=== PATIENT | female | born 1995 | race Caucasian/White ===

== ENCOUNTER 2017-11-19 16:30 | Emergency (ER) | payer OTHER ==
[~2017-11-19] VITALS: Ht 157.5 cm; Wt 64.6 kg
[2017-11-19 16:34] VITALS: TEMP 37.6; Ht 157.5 cm; Wt 64.6 kg
[2017-11-19] MEDS ORDERED: KETOROLAC TROMETHAMINE 60 MG/2 ML VIAL IM STA (16:55)
[2017-11-19] MEDS ORDERED: DEXAMETHASONE **PF** INJ 10 MG/ML VIAL PO STA (16:55)
[2017-11-19] MEDS ORDERED: COUGH DROP (SUGAR FREE) LOZ 24 LOZ/1 BOX PO STA (16:55)
[2017-11-19] MEDS ORDERED: ACETAMINOPHEN 500 MG TAB PO STA (16:55)
[2017-11-19] MEDS ORDERED: DEXT30SU8 PO (17:06)
[2017-11-19] MEDS ORDERED: ACET-1256 PO (17:06)
--- NOTE | 2017-11-19 17:14 | EMERGENCY ROOM VISIT NOTE ---
History First contact with patient: 16:37 Chief Complaint: FLU LIKE SX Stated Complaint: FEVER, COLD, CONGESTION History of Present Illness The patient is a 21 year old healthy female who presents to the Emergency Room with complaints of fever, dry cough and congestion x 1 week. Associated with chills, rhinorrhea, otalgia, sore throat, nausea/vomiting, diarrhea (started today x 2). Denies abdominal pain and dysuria. LMP last week. Reports not sexually active and not . Did not get the flu shot this year. Lives with aunt whose and children have been sick as well. Taken Tylenol and Robitussin without much relief. Note: pt is thai speaking and aunt translated. Review of Systems see below Constitutional: + fever, + chills ENT: + nasal symptoms, + sore throat, + problem reported (otalgia) Respiratory: + cough, No sputum, No shortness of breath Cardiovascular: No chest pain Abdomen: + nausea, + vomiting, + diarrhea, No pain Genitourinary - Female: No dysuria Past Medical/Surgical History Medical Problems: (1) No Known Active Medical Problems Social History Smoking Status: Never Smoker Current/Historical Medications Scheduled Dextromethorphan Polistirex (Robitussin 12 Hour Cough), 5 ML PO PRN Prednisone (Prednisone Tab), 2 TAB PO QAM Scheduled PRN Acetaminophen (Tylenol), 1,000 MG PO Q6 PRN for Pain or Fever Physical Exam Vital Signs Date Time Temp Pulse Resp B/P (MAP) Pulse Ox O2 Delivery O2 Flow Rate FiO2 11/19/17 16:34 37.6 114 16 125/80 98 Room Air Physical Exam see below General Appearance: no apparent distress Head: normocephalic, atraumatic Eyes: normal inspection, PERRL ENT: TMs normal, pharynx normal, + nasal congestion Neck: supple, no adenopathy Respiratory/Chest: lungs clear, normal breath sounds, no respiratory distress Cardiovascular: no murmur, + tachycardia Abdomen / GI: normal bowel sounds, non tender, soft Extremities: + slow capillary refill Neurologic/Psych: alert, oriented x 3 Medical Decision & Procedures Laboratory Results Test 11/19/17 17:10 Influenza Type A Antigen POS for Influ A (NEG) Influenza Type B Antigen Neg for Influ B (NEG) Medications Administered Medications (Trade) Dose Ordered Sig/Haile Route Start Time Stop Time Status Last Admin Dose Admin Acetaminophen (Tylenol Tab) 1,000 mg NOW STAT PO 11/19/17 16:55 11/19/17 16:58 DC 11/19/17 17:14 1,000 MG Ketorolac Tromethamine (Toradol Inj) 60 mg NOW STAT IM 11/19/17 16:55 11/19/17 16:58 DC 11/19/17 17:14 60 MG Menthol (Nice Marci) 1 marci NOW STAT PO 11/19/17 16:55 11/19/17 16:58 DC 11/19/17 17:14 1 MARCI Dexamethasone Sodium Phosphate (Dexamethasone Inj Pf) 10 mg ONE STAT PO 11/19/17 16:55 11/19/17 16:58 DC 11/19/17 17:14 10 MG Medical Decision 21y/o healthy female presents with fever, dry cough and congestion x 1 week. Concerning for most likely viral URI vs. strep pharyngitis vs. sinusitis vs. bronchitis vs. pneumonia. -Centor criteria score 0 - rapid strep not done (no fever, cough present and no posterior pharyngeal erythema/exudate and LAD) -Ordered flu swab - positive for influenza A -Lives with aunt, her and 2 children: last week aunt's who had renal transplant 11/04/17 was diagnosed with influenza as well as his daughter and both were treated with antibiotics for 5 days. Pt likely got exposed to influenza from aunt's or daughter. No family memeber prophylaxis needed since already exposed and/or treated -Ordered CXR to rule out pneumonia - no acute pathology -Ordered EKG given tachycardia - sinus tachycardia -Given Toradol IM 60mg, tylenol 1g PO, Cepacol lozenge, and Dexamethasone PO 10mg for symptomatic relief - reported feeling better @1743 -Stable for discharge home -Prescribed Prednisone 40mg QAM x 4 days -Recommended Cepacol cough drops, and tylenol for discomfort; adequate hydration , and abstinence from tobacco/alcohol products. Impression Primary Impression: Upper respiratory infection Departure Information Dispostion Home / Self-Care Condition GOOD Prescriptions Prednisone (Prednisone Tab) 20 Mg Tab 2 TAB PO QAM for 4 Days, #8 TAB Prov: Shanel Arce M.D. 11/19/17 Referrals Yuridia Francis D.O. (PCP) Patient Instructions My [facility]
--- NOTE | 2017-11-19 17:35 | DIAGNOSTIC IMAGING REPORT ---
SINGLE VIEW CHEST CLINICAL HISTORY: Cough. FINDINGS: An AP, portable, upright chest radiograph is obtained. No prior studies are available for comparison at the time of dictation. The cardiomediastinal silhouette is unremarkable. The lungs and pleural spaces are clear. No pneumothorax is seen. The bony thorax is grossly intact. IMPRESSION: No active disease in the chest. Electronically signed by: Oumar Alicea M.D. 11/19/2017 5:34 PM Dictated Date/Time: 11/19/2017 5:33 PM
[2017-11-19] MEDS ORDERED: PRED20TA2 PO (17:47)
[2017-11-19 18:17] LABS: INFLUENZA B ANTIGEN Neg for Influ B (NEG)
[2017-11-19 18:41] VITALS: BP 111/66; PULSE 102; O2SAT 98
--- NOTE | 2017-12-11 01:40 | EMERGENCY ROOM VISIT NOTE ---
History Report prepared by Marilin: Leandro Travis Under the Supervision of: Dr. Ayan Jones M.D. First contact with patient: 16:38 Chief Complaint: FLU LIKE SX Stated Complaint: FEVER, COLD, CONGESTION History of Present Illness The patient is a 21 year old female who presents to the ED with a cc of persistent fevers beginning one week ago. Patient does not speak Divehi fluently. Positive dry cough, ear pain, chills, nausea, vomiting, sore throat, and congestion. Nausea and vomiting began today. Negative abdominal pain, or urinary symptoms. Her LNMP was last week. Patient denies recent travel, antibiotic use, or oral contraceptive use. Patient has lived in [place] for two years. Source of History: patient Onset: One week ago Quality: other (fevers) Timing: other (persistent) Associated Symptoms: + chills, + sorethroat, + cough (dry), + nausea, + vomiting, No abdominal pain, No urinary symptoms Note: Additional symptoms: ear pain and congestion. Review of Systems See HPI for pertinent positives and negatives. A total of ten systems were reviewed and were otherwise negative. Past Medical & Surgical Medical Problems: (1) No Known Active Medical Problems Family History No pertinent family history stated. Social History Smoking Status: Never Smoker Current/Historical Medications Scheduled Dextromethorphan Polistirex (Robitussin 12 Hour Cough), 5 ML PO PRN Scheduled PRN Acetaminophen (Tylenol), 1,000 MG PO Q6 PRN for Pain or Fever Allergies Coded Allergies: No Known Allergies (Unverified , 01/21/16) Physical Exam Vital Signs Date Time Temp Pulse Resp B/P (MAP) Pulse Ox O2 Delivery O2 Flow Rate FiO2 11/19/17 18:41 102 18 111/66 98 11/19/17 16:34 37.6 114 16 125/80 98 Room Air Physical Exam GENERAL: Awake, alert, well-appearing, NAD HENT: Normocephalic, atraumatic. EYES: Normal conjunctiva. Sclera non-icteric. NECK: Supple. No nuchal rigidity. FROM. RESPIRATORY: CTAB, no rhonchi, wheezing, crackles CARDIAC: Tachycardic rate with a regular rhythm, no MRG ABDOMEN: Soft, NTND, BS+ MSK: No chest wall TTP, no LE edema. No calf pain. Negative Homans sign. No asymmetry. NEURO: GCS 15, CN 2-12 intact, moves all 4s on command SKIN: No rash or jaundice noted. Medical Decision & Procedures ER Provider Diagnostic Interpretation: Radiology results as stated below per my review and radiologist interpretation: SINGLE VIEW CHEST FINDINGS: An AP, portable, upright chest radiograph is obtained. No prior studies are available for comparison at the time of dictation. The cardiomediastinal silhouette is unremarkable. The lungs and pleural spaces are clear. No pneumothorax is seen. The bony thorax is grossly intact. IMPRESSION: No active disease in the chest. Electronically signed by: Oumar Alicea M.D. 11/19/2017 5:34 PM Laboratory Results Test 11/19/17 17:10 Influenza Type A Antigen POS for Influ A (NEG) Influenza Type B Antigen Neg for Influ B (NEG) Laboratory results reviewed by me Medications Administered Medications (Trade) Dose Ordered Sig/Haile Route Start Time Stop Time Status Last Admin Dose Admin Acetaminophen (Tylenol Tab) 1,000 mg NOW STAT PO 11/19/17 16:55 11/19/17 16:58 DC 11/19/17 17:14 1,000 MG Ketorolac Tromethamine (Toradol Inj) 60 mg NOW STAT IM 11/19/17 16:55 11/19/17 16:58 DC 11/19/17 17:14 60 MG Menthol (Nice Marci) 1 marci NOW STAT PO 11/19/17 16:55 11/19/17 16:58 DC 11/19/17 17:14 1 MARCI Dexamethasone Sodium Phosphate (Dexamethasone Inj Pf) 10 mg ONE STAT PO 11/19/17 16:55 11/19/17 16:58 DC 11/19/17 17:14 10 MG ECG Indication: other (illness) Rate (beats per minute): 106 Rhythm: sinus tachycardia Findings: other (Normal axis. T-wave flattening in lead 3. No other STS change or TWI. ) Comparison ECG Date: no prior available ED Course 1640: The patient was evaluated in room C11B. A complete history and physical exam was performed. 0: I reassessed the patient. She feels much better. 1804: I reevaluated the patient. I updated her of her results and told her to return for development of concerning symptoms. Medical Decision The patient is a 21 year old female who presents to the ED with a cc of persistent fevers beginning one week ago. Differential diagnosis includes but is not limited to URI, bronchitis, pneumonia , PE, and pharyngitis. She was seen and evaluated at the bedside after being seen by the resident physician. The patient did complain of some persistent fever as well as some URI and flulike symptoms. The patient did elect to have a flu swab completed. The patient did have a positive influenza A. The patient was well-appearing otherwise and was told to continue symptomatic [id number] treatment at home. The patient was deemed suitable for outpatient follow-up and treatment at this time. Patient was given strict follow-up, discharge, and return precautions. All questions were answered. Patient was deemed suitable for outpatient follow-up at this time. Patient agreed with the plan of care and was safely discharged home. The chart was completed utilizing [employer] voice recognition software. Grammatical errors, random word insertions, pronoun errors, and incomplete sentences are an occasional consequence of this system due to software limitations, ambient noise, and hardware issues. Any formal questions or concerns about the content, text, or information contained within the body of this dictation should be directly addressed to the physician for clarification. Medication Reconcilliation Current Medication List: was personally reviewed by me Blood Pressure Screening Patient's blood pressure: Normal blood pressure Blood pressure disposition: Did not require urgent referral Impression Primary Impression: Acute bronchitis Additional Impression: Upper respiratory infection Scribe Attestation .The scribe's documentation has been prepared under my direction and personally reviewed by me in its entirety. I confirm that the note above accurately reflects all work, treatment, procedures, and medical decision making performed by me. Departure Information Dispostion Home / Self-Care Referrals Yuridia Francis D.O. (PCP) Forms HOME CARE DOCUMENTATION FORM, IMPORTANT VISIT INFORMATION Patient Instructions Colds Self Care, My [facility] Additional Instructions Prescription: Take prednisone 20mg - 2 tablets every morning for 4 days Take cough drops (cepacol) for cough relief Take tylenol for fever and discomfort Stay well hydrated Avoid smoking/drinking alcohol and exposure to second hand smoke Problem Qualifiers Primary Impression: Acute bronchitis Bronchitis organism: unspecified organism Qualified Codes: J20.9 - Acute bronchitis, unspecified Additional Impression: Upper respiratory infection URI type: unspecified URI Qualified Codes: J06.9 - Acute upper respiratory infection, unspecified
== END 2017-11-19 18:42 | disposition home or self-care (01) ==
LOC: C.EDB 16:32 → MERGE 16:32 → C.EDC 18:42
DX: J06.9 Acute upper respiratory infection, unspecified (principal)